=== PATIENT | female | born 1965 | race Caucasian/White ===

== ENCOUNTER 2019-11-30 09:19 | Emergency (ER) | payer SELFPAY ==
[~2019-11-30] VITALS: Ht 149.9 cm; Wt 89.5 kg
[2019-11-30 09:23] VITALS: BP 148/86
[2019-11-30] MEDS ORDERED: KETOROLAC 60 MG/2 ML VIAL IM ONE (09:45)
--- NOTE | 2019-11-30 09:55 | NUR ---
PT TRIPPED YESTERDAY AND LANDED ON HER LOWER BACK ON HARD SURFACE. C/O SEVERE PAIN TO LOWER BACK RADIATING TO RLQ OF ABD. SKIN INTACT, NO BRUISING NOTED, DENIES ALOC. PAIN 04/14. SIDERAIL UP X 1 AND BED IN LOWEST POSITION. PT STATES SHE TOOK NAPROXEN X 1 TAB THIS AM AT 7 WITH NO RELIEF DENIES MED HX NKA
--- NOTE | 2019-11-30 09:58 | NUR ---
Pt left for Xray via wheelchair
--- NOTE | 2019-11-30 10:31 | NUR ---
PT RETURNED FROM XRAY AND RESTING A LITTLE MORE COMFORTABLY. RATING PAIN 7/10, HOWEVER SHE DOES NOT WANT ANY MORE MEDS AT THIS TIME
[2019-11-30 10:42] VITALS: BP 148/86
== END 2019-11-30 10:38 | disposition home or self-care (01) ==
LOC: MED 09:19
DX: S30.0XXA Contusion of lower back and pelvis, initial encounter (principal); J45.909 Unspecified asthma, uncomplicated; W01.0XXA Fall on same level from slipping, tripping and stumbling without subsequent striking against object, initial encounter; Y93.89 Activity, other specified; Y92.89 Other specified places as the place of occurrence of the external cause; Y99.8 Other external cause status
CPT/HCPCS: 72100; 96372; 99283; J1885